=== PATIENT | male | born 1970 | race Caucasian/White ===

== ENCOUNTER → 2016-08-07 | Outpatient (CLI) | payer OTHER ==
[~2016-08-07] MED LIST: AMLODIPINE BES10 MG PO; CARVEDILOL3.125 MG PO; CLONIDINE HCL0.1 M1 PO; LISINOPRIL20 MG PO; LISINOPRIL40 MG PO; OXYCODONE AND A1 TA5 PO; TRAZODONE50 MG PO
[2016-08-07 14:41] LABS: AMPHETAMINES/METAMPHETAMINES NEGATIVE ng/mL (<1000)
== END ==
LOC: LAB 13:39
PROVIDERS: Emergency Medicine
DX: Z79.899 Other long term (current) drug therapy (principal)

== ENCOUNTER → 2016-12-26 | Outpatient (CLI) | payer OTHER ==
[2016-12-26 16:00] LABS: AMPHETAMINES/METAMPHETAMINES NEGATIVE ng/mL (<1000)
== END ==
LOC: LAB 13:58
PROVIDERS: Emergency Medicine
DX: Z79.899 Other long term (current) drug therapy (principal)

== ENCOUNTER → 2017-03-11 | Outpatient (CLI) | payer OTHER ==
[2017-03-11 19:13] LABS: AMPHETAMINES/METAMPHETAMINES NEGATIVE ng/mL (<1000)
[2017-03-18 16:40] LABS: Opiates Negative (Cutoff=100)
== END ==
LOC: LAB 17:53
PROVIDERS: Nurse Practitioner Family
DX: Z79.899 Other long term (current) drug therapy (principal)

== ENCOUNTER → 2017-04-05 | Outpatient (CLI) | payer OTHER ==
[2017-04-05 15:39] LABS: AMPHETAMINES/METAMPHETAMINES NEGATIVE ng/mL (<1000)
[2017-04-15 16:39] LABS: Opiates Negative (Cutoff=100)
== END ==
LOC: LAB 14:08
PROVIDERS: Emergency Medicine
DX: Z79.899 Other long term (current) drug therapy (principal)

== ENCOUNTER 2017-04-26 15:12 | Emergency (ER) | payer OTHER ==
[~2017-04-26] VITALS: Ht 185.4 cm; Wt 97.5 kg
--- NOTE | 2017-04-26 15:34 | Emergency Room Report ---
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 PT C/O PAIN IN POSTERIOR NECK PAIN. 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 N Clinical Suspician of Infection? N Mental Status: 1 - Regular (Normal Baseline) Sepsis Risk:Low Sepsis Risk Have you (or family members/close friends) recently traveled outside the [place]? N If Yes, where/when: Have you had exposure to infectious disease within the past month? N TB? Other? Specify: Comment The patient had a lawnmower flipped twice while he was on it yesterday. He says that he went backwards and struck the back of his head and neck. He has the sensation of pain and pressure in his neck into his trapezius areas bilaterally. He has some numbness in his trapezius areas and down his spine, but not into his arms or fingers. He has a headache. No vomiting. No injury to chest or abdomen otherwise. ALLERGIES Coded Allergies: Penicillins (FACIAL SWELLING 03/11/16) Sulfa (Sulfonamide Antibiotics) (03/11/16) aspirin (FACIAL SWELLING 03/11/16) Home Medications Active Scripts Carvedilol (Carvedilol 3.125MG) 3.125 MG PO BID 14 Days Prov: 11/02/16 Reported Medications Lisinopril 20 MG PO QHS #30 Lisinopril (Lisinopril 40MG) 40 MG PO DAILY #30 Amlodipine Besylate (Amlodipine Besylate) 5 MG PO DAILY #30 Trazodone Hcl (Trazodone HCl) 50 MG PO QHS #30 OXYCODONE HCL/ACETAMINOPHEN (Oxycodone-Acetaminophen 10-325) 1 TAB PO TID #90 History Medical History General CAD? No Angina: No [place]: No Hypertension? Yes Hyperlipidemia? No CHF? No DVT? No PE? No COPD? No Asthma? No Anemia? No GERD? No Gastric ulcers? No GI Bleed? No Hernia? No Thyroid Problems? No Hypothyroidism? No CVA? No Seizures? No Diabetes? No Renal Insuffiency? No End Stage Renal Disease? No UTI? No Stones? No GB Disease: No Nephritic Syndrome? No Asplenia? No Hepatitis? No Sickle Cell Disease? No Arthritis? Yes Migraines? No Cataracts? No Glaucoma? No MRSA? No HIV? No TB? No Anxiety? No Depression? No Cancer? No More? Yes Additional hx: BRIGHTS DISEASE DEGENERATIVE DISC DISEASE Immunization Hx DT/Tetanus Unknown Flu 2016-17FSN Pneumonia Refuses Surgical Hx Previous Surgery?Y BACK SX X2 L LEG SX -[place] PLACED FACIAL SURGERY Family History Family Hx Diabetes Yes CAD Yes Hypertension Yes Hyperlipidemia Yes Cancer Yes TB No Social History Smoking Hx Smoker: Never Smoker Tobacco: No Alcohol Alcohol: No Review of Systems All Other Systems Reviewed and Negative Cardiovascular denies chest pain Gastrointestinal denies abdominal pain, denies vomiting Musculoskeletal neck pain Psychiatric/Neurological headache, tingling, denies weakness Physical Exam Vital Signs Vital Signs Date Time Temp Pulse Resp B/P Pulse O2 O2 Flow FiO2 Ox Delivery Rate 04/26 1632 84 18 153/84 96 04/26 1625 84 18 153/84 96 04/26 1515 97.9 81 18 145/95 96 General Appearance no apparent distress Eye Exam - bilateral eye normal exam, bilateral eye PERRL, bilateral eye EOMI Ear, Nose, Throat hearing grossly normal, normal ENT inspection Neck cervical collar, tenderness over C7-T1 spinous process Respiratory Status Yes: trachea midline, chest symmetrical, non tender chest. No: respiratory distress. Lung Sounds bilateral: normal breath sounds, lungs clear. 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 No Robi was queried for this patient? Yes Comment [id number] rxs. last rxs gabapentin on 04/21/17 and 90 percocet 10mg on 04/09/17. Results/Orders Current Medication Orders Sig/Raffi Start time Last Medication Dose Route Stop Time Status Admin Diphtheria/Pertussis/ 0.5 ML ONCE ONE 04/26 1545 DC 04/26 Tetanus Vacc IM 04/26 1546 1533 Diphtheria/Pertussis/ 0 .STK-MED ONE 04/26 1525 DC Tetanus Vacc IM Orders Procedure Date/time Status DIET-NOTHING BY MOUTH 04/[address] HEAD REQ 04/[address] SCAN REQ 04/26 152 Active Departure Departure Disposition DC Home or Self Care(routine) Clinical Impression Primary Impression: Cervical strain Qualifiers: Encounter type: initial encounter Qualified Code: S16.1XXA - Strain of muscle, fascia and tendon at neck level, initial encounter Secondary Impressions: Scalp contusion Qualifiers: Encounter type: initial encounter Qualified Code: S00.03XA - Contusion of scalp, initial encounter Condition STABLE Referrals Bob WEAVER,David Saleem (PCP/Family) Patient Instructions DI for Closed Head Injury, DI for Neck Sprain Additional Instructions Continue your pain medication and use ibuprofen for inflammation. Additional instructions for HEAD INJURY: See your physician as soon as possible for further evaluation. Return immediately if severe headache, vomiting, problems with vision or speech, numbness or weakness of the extremities, or severe neck pain. Additional instructions for NECK PAIN: Return immediately if neck pain becomes intolerable, or if numbness or weakness of your arms or legs, loss of control of your bowels or bladder. ED Critical Care Critical Care No at [id number]
--- NOTE | 2017-04-26 15:34 | Emergency Room Report ---
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 PT C/O PAIN IN POSTERIOR NECK PAIN. 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 N Clinical Suspician of Infection? N Mental Status: 1 - Regular (Normal Baseline) Sepsis Risk:Low Sepsis Risk Have you (or family members/close friends) recently traveled outside the [place]? N If Yes, where/when: Have you had exposure to infectious disease within the past month? N TB? Other? Specify: Comment The patient had a lawnmower flipped twice while he was on it yesterday. He says that he went backwards and struck the back of his head and neck. He has the sensation of pain and pressure in his neck into his trapezius areas bilaterally. He has some numbness in his trapezius areas and down his spine, but not into his arms or fingers. He has a headache. No vomiting. No injury to chest or abdomen otherwise. ALLERGIES Coded Allergies: Penicillins (FACIAL SWELLING 03/11/16) Sulfa (Sulfonamide Antibiotics) (03/11/16) aspirin (FACIAL SWELLING 03/11/16) Home Medications Active Scripts Carvedilol (Carvedilol 3.125MG) 3.125 MG PO BID 14 Days Prov: 11/02/16 Reported Medications Lisinopril 20 MG PO QHS #30 Lisinopril (Lisinopril 40MG) 40 MG PO DAILY #30 Amlodipine Besylate (Amlodipine Besylate) 5 MG PO DAILY #30 Trazodone Hcl (Trazodone HCl) 50 MG PO QHS #30 OXYCODONE HCL/ACETAMINOPHEN (Oxycodone-Acetaminophen 10-325) 1 TAB PO TID #90 History Medical History General CAD? No Angina: No [place]: No Hypertension? Yes Hyperlipidemia? No CHF? No DVT? No PE? No COPD? No Asthma? No Anemia? No GERD? No Gastric ulcers? No GI Bleed? No Hernia? No Thyroid Problems? No Hypothyroidism? No CVA? No Seizures? No Diabetes? No Renal Insuffiency? No End Stage Renal Disease? No UTI? No Stones? No GB Disease: No Nephritic Syndrome? No Asplenia? No Hepatitis? No Sickle Cell Disease? No Arthritis? Yes Migraines? No Cataracts? No Glaucoma? No MRSA? No HIV? No TB? No Anxiety? No Depression? No Cancer? No More? Yes Additional hx: BRIGHTS DISEASE DEGENERATIVE DISC DISEASE Immunization Hx DT/Tetanus Unknown Flu 2016-17FSN Pneumonia Refuses Surgical Hx Previous Surgery?Y BACK SX X2 L LEG SX -[place] PLACED FACIAL SURGERY Family History Family Hx Diabetes Yes CAD Yes Hypertension Yes Hyperlipidemia Yes Cancer Yes TB No Social History Smoking Hx Smoker: Never Smoker Tobacco: No Alcohol Alcohol: No Review of Systems All Other Systems Reviewed and Negative Cardiovascular denies chest pain Gastrointestinal denies abdominal pain, denies vomiting Musculoskeletal neck pain Psychiatric/Neurological headache, tingling, denies weakness Physical Exam Vital Signs Vital Signs Date Time Temp Pulse Resp B/P Pulse O2 O2 Flow FiO2 Ox Delivery Rate 04/26 1632 84 18 153/84 96 04/26 1625 84 18 153/84 96 04/26 1515 97.9 81 18 145/95 96 General Appearance no apparent distress Eye Exam - bilateral eye normal exam, bilateral eye PERRL, bilateral eye EOMI Ear, Nose, Throat hearing grossly normal, normal ENT inspection Neck cervical collar, tenderness over C7-T1 spinous process Respiratory Status Yes: trachea midline, chest symmetrical, non tender chest. No: respiratory distress. Lung Sounds bilateral: normal breath sounds, lungs clear. 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 No Robi was queried for this patient? Yes Comment [id number] rxs. last rxs gabapentin on 04/21/17 and 90 percocet 10mg on 04/09/17. Results/Orders Current Medication Orders Sig/Raffi Start time Last Medication Dose Route Stop Time Status Admin Diphtheria/Pertussis/ 0.5 ML ONCE ONE 04/26 1545 DC 04/26 Tetanus Vacc IM 04/26 1546 1533 Diphtheria/Pertussis/ 0 .STK-MED ONE 04/26 1525 DC Tetanus Vacc IM Orders Procedure Date/time Status DIET-NOTHING BY MOUTH 04/[address] HEAD REQ 04/[address] SCAN REQ 04/26 152 Active Departure Departure Disposition DC Home or Self Care(routine) Clinical Impression Primary Impression: Cervical strain Qualifiers: Encounter type: initial encounter Qualified Code: S16.1XXA - Strain of muscle, fascia and tendon at neck level, initial encounter Secondary Impressions: Scalp contusion Qualifiers: Encounter type: initial encounter Qualified Code: S00.03XA - Contusion of scalp, initial encounter Condition STABLE Referrals Bob WEAVER,David Saleem (PCP/Family) Patient Instructions DI for Closed Head Injury, DI for Neck Sprain Additional Instructions Continue your pain medication and use ibuprofen for inflammation. Additional instructions for HEAD INJURY: See your physician as soon as possible for further evaluation. Return immediately if severe headache, vomiting, problems with vision or speech, numbness or weakness of the extremities, or severe neck pain. Additional instructions for NECK PAIN: Return immediately if neck pain becomes intolerable, or if numbness or weakness of your arms or legs, loss of control of your bowels or bladder. ED Critical Care Critical Care No at [id number]
--- NOTE | 2017-04-26 15:58 | RADIOLOGY REPORT PS360 ---
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 Brain and bone windows reviewed. FINDINGS: No midline shift, mass effect, intracranial hemorrhage, hydrocephalus, or extra-axial fluid collection is evident. Postsurgical changes in region of the frontal sinus. No acute calvarial abnormality evident. Mild mucosal thickening involves the ethmoid sinuses. No mastoid effusion. IMPRESSION: No acute intracranial findings
--- NOTE | 2017-04-26 15:58 | RADIOLOGY REPORT PS360 ---
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 Brain and bone windows reviewed. FINDINGS: No midline shift, mass effect, intracranial hemorrhage, hydrocephalus, or extra-axial fluid collection is evident. Postsurgical changes in region of the frontal sinus. No acute calvarial abnormality evident. Mild mucosal thickening involves the ethmoid sinuses. No mastoid effusion. IMPRESSION: No acute intracranial findings
--- NOTE | 2017-04-26 16:01 | RADIOLOGY REPORT PS360 ---
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 Sagittal and coronal reformatted images are reviewed as well. FINDINGS: There is straightening of the cervical lordosis which may be due to patient positioning or muscle spasm. No fracture or dislocation is evident. Lung apices are clear. No prevertebral soft tissue swelling. There is mild degenerative disc disease at C4-C5 and C5-C6. There are scattered small lymph nodes present in the neck more numerous in the right submandibular region. IMPRESSION: 1. No acute fracture. 2. Mild cervical spondylosis
--- NOTE | 2017-04-26 16:01 | RADIOLOGY REPORT PS360 ---
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 Sagittal and coronal reformatted images are reviewed as well. FINDINGS: There is straightening of the cervical lordosis which may be due to patient positioning or muscle spasm. No fracture or dislocation is evident. Lung apices are clear. No prevertebral soft tissue swelling. There is mild degenerative disc disease at C4-C5 and C5-C6. There are scattered small lymph nodes present in the neck more numerous in the right submandibular region. IMPRESSION: 1. No acute fracture. 2. Mild cervical spondylosis
--- NOTE | 2017-04-26 16:14 | RADIOLOGY REPORT PS360 ---
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 The lungs are clear without infiltrates, suspicious nodules, or pleural effusions. No acute bony abnormalities. IMPRESSION: Negative chest, no acute finding
--- NOTE | 2017-04-26 16:14 | RADIOLOGY REPORT PS360 ---
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 The lungs are clear without infiltrates, suspicious nodules, or pleural effusions. No acute bony abnormalities. IMPRESSION: Negative chest, no acute finding
[2017-04-26 16:32] VITALS: BP 153/84
== END 2017-04-26 16:33 | disposition home or self-care (01) ==
LOC: ER 15:12
DX: S16.1XXA Strain of muscle, fascia and tendon at neck level, initial encounter (principal); S00.03XA Contusion of scalp, initial encounter; I10 Essential (primary) hypertension; Z79.899 Other long term (current) drug therapy; Z88.0 Allergy status to penicillin; Z88.2 Allergy status to sulfonamides; Z23 Encounter for immunization; W30.89XA Contact with other specified agricultural machinery, initial encounter; Y92.69 Other specified industrial and construction area as the place of occurrence of the external cause; Y99.0 Civilian activity done for income or pay

== ENCOUNTER → 2017-05-07 | Outpatient (CLI) | payer OTHER ==
[2017-05-07 17:33] LABS: AMPHETAMINES/METAMPHETAMINES NEGATIVE ng/mL (<1000)
== END ==
LOC: LAB 17:11
PROVIDERS: Emergency Medicine
DX: Z79.899 Other long term (current) drug therapy (principal)

== ENCOUNTER → 2017-07-09 | Outpatient (CLI) | payer OTHER ==
[2017-07-09 14:07] LABS: AMPHETAMINES/METAMPHETAMINES NEGATIVE ng/mL (<1000)
[2017-07-15 05:39] LABS: Opiates Negative (Cutoff=100)
== END ==
LOC: LAB 13:22
PROVIDERS: Emergency Medicine
DX: Z79.899 Other long term (current) drug therapy (principal)